=== PATIENT | male | born 1985 | race Caucasian/White ===

== ENCOUNTER 2023-12-05 12:29 | Outpatient (CLI) | payer OTHER, SELFPAY ==
[2023-12-05 13:02] LABS: Basophils # 0.1 K/mm3 (0-0.2); Basophils % 1.5 % (0.1-2.0); Eosinophils # 0.1 K/mm3 (0.0-0.4); Eosinophils % 1.4 % (0.1-12.0); Hematocrit 45.2 % (42.0-52.0); Hemoglobin 16.1 g/dL (14.1-18.0); Lymphocytes # 1.7 K/mm3 (0.7-4.5); Lymphocytes % 25.1 % (10-50); Mean Corpuscular HGB Conc 35.6 g/dL (31.8-35.4); Mean Corpuscular Hemoglobin 30.7 pg (27.0-31.2); Mean Corpuscular Volume 86.3 fl (80-94); Mean Platelet Volume 7.9 fl (7.4-10.4); Monocytes # 0.5 K/mm3 (0.1-1.0); Monocytes % 6.8 % (1.7-9.3); Neutrophils # 4.5 K/mm3 (1.8-7.8); Neutrophils % 65.3 % (37.0-80.0); Platelet Count 190 K/mm3 (142-424); Red Blood Count 5.23 M/mm3 (4.60-6.20); Red Cell Distribution Width 13.3 % (11.5-17.5); White Blood Count 6.8 K/mm3 (4.8-10.8)
[2023-12-05 13:29] LABS: Chloride 101 mmol/L (98-107); Sodium 134 mmol/L (136-145)
[2023-12-05 13:30] LABS: Potassium 4.1 mmoL/L (3.5-5.1)
[2023-12-05 13:33] LABS: Anion Gap 12.1 mEq/L (5-15); Blood Urea Nitrogen 26 mg/dl (9-20); Carbon Dioxide 25 mmol/L (22.0-30.0); Estimated Glomerular Filt Rate 107 ml/min (>60); GFR (African American) 130 ML/MIN (>60); Glucose 102 mg/dl (74-100)
== END 2023-12-05 23:59 | disposition home or self-care (01) ==
PROVIDERS: Visit Provider Internal Medicine
DX: E86.0 Dehydration (principal)
CPT/HCPCS: 36415; 80048; 85025

== ENCOUNTER 2024-02-12 15:11 | Outpatient (CLI) | payer OTHER, SELFPAY ==
--- NOTE | 2024-02-12 15:11 | MR_ITS ---
PROCEDURE INFORMATION: Exam: MR Head Without Contrast Exam date and time: 02/12/2024 3:38 PM Age: 38 years old Clinical indication: Pain; Headache; Patient HX: PT stated he has had lyme disease, has been treated for it twice , abnormal lab work; Additional info: Pituitary adenoma TECHNIQUE: Imaging protocol: Magnetic resonance imaging of the head without contrast. COMPARISON: No relevant prior studies available. FINDINGS: Major vascular flow voids at the skull base are preserved. No extra-axial fluid collection. No obstructive hydrocephalus. No midline shift or significant intracranial mass effect. No pathologic white-matter signal or cerebral edema. No diffusion restriction. Adenohypophysis appears within normal limits. Normal intrinsic T1 shortening of the neurohypophysis. Infundibulum appears within normal limits. No discrete sellar or suprasellar mass. No sellar expansion. Mild paranasal sinus disease. No significant mastoid effusion. IMPRESSION: 1. No acute intracranial abnormality. 2. No discrete sellar or suprasellar mass within constraints of noncontrast examination.
== END 2024-02-12 23:59 | disposition home or self-care (01) ==
LOC: RAD 15:11
PROVIDERS: Visit Provider Internal Medicine
DX: D35.2 Benign neoplasm of pituitary gland (principal); M54.9 Dorsalgia, unspecified
CPT/HCPCS: 70551